=== PATIENT | female | born 1980 | race Caucasian/White ===

== ENCOUNTER 2017-03-11 15:38 | Emergency (ER) | payer OTHER ==
[~2017-03-11] VITALS: Ht 180.3 cm; Wt 154.9 kg
[2017-03-11] MEDS ORDERED: SODIUM CHLORIDE FLUSH 10ML SYR IVF ONE (16:00)
[2017-03-11] MEDS ORDERED: ONDANSETRON 2MG/ML, 2ML IVPush ONE (16:00)
[2017-03-11] MEDS ORDERED: SODIUM CHLORIDE 0.9% 1,000ML IVBOLUS ONE (16:00)
[2017-03-11 16:47] LABS: HEMOGLOBIN 14.4 g/dL (11.7-16.4); WHITE BLOOD COUNT 10.9 x10^3/uL (3.4-10)
[2017-03-11 17:00] LABS: BLOOD UREA NITROGEN 10 mg/dL (7-18)
[2017-03-11 17:05] LABS: IS PT STATUS REG ER OR PRE ER? YES
[2017-03-11 17:58] VITALS: BP 113/66
[2017-03-11] MEDS ORDERED: HYDROcodone/APAP 5/325 TABLET ONE (18:37)
[2017-03-11] MEDS ORDERED: ONDANSETRON ODT 4 MG ONE (18:38)
[2017-03-11] MEDS ORDERED: HYDROcodone/APAP 5/325 TABLET PO ONE (19:00)
[2017-03-11] MEDS ORDERED: ONDANSETRON ODT 4 MG PO ONE (19:00)
== END 2017-03-11 21:24 | disposition home or self-care (01) ==
LOC: ED 21:18
DX: M48.02 Spinal stenosis, cervical region (principal); R41.0 Disorientation, unspecified; M41.9 Scoliosis, unspecified; F25.9 Schizoaffective disorder, unspecified
CPT/HCPCS: 36415; 70450; 71010; 72125; 80048; 81003; 82040; 83880; 84484; 85025; 93005; 93970; 99285; Q0162

== ENCOUNTER 2019-08-18 12:32 | Emergency (ER) | payer MEDICAID ==
[~2019-08-18] VITALS: Ht 180.3 cm; Wt 137.6 kg
--- NOTE | 2019-08-18 14:37 | NUR ---
CALLED FOR PT. PT NOT IN LOBBY AT THIS TIME.
[2019-08-18 14:41] LABS: ALBUMIN 3.4 g/dL (3.4-5.0); ANION GAP 8 mmol/L (5-15); CALCIUM 8.8 mg/dL (8.5-10.1); CHLORIDE 103 mmol/L (98-107)
[2019-08-18 14:42] LABS: MEAN CORPUSCULAR HEMOGLOBIN 31.1 pg (27.0-34.8); MEAN CORPUSCULAR HGB CONC 33.8 g/dL (32.4-35.8); MEAN CORPUSCULAR VOLUME 91.8 fL (80-100); MEAN PLATELET VOLUME 8.3 fL (7.4-10.4); PLATELET COUNT 258 x10^3/uL (130-400); RED CELL DISTRIBUTION WIDTH 13.4 % (9.6-15.2)
[2019-08-18 14:45] LABS: ALANINE AMINOTRANSFERASE 15 U/L (12-78); ALKALINE PHOSPHATASE 75 U/L (45-117); BILIRUBIN,TOTAL 0.7 mg/dL (0.2-1.0); TOTAL PROTEIN 7.2 g/dL (6.4-8.2)
--- NOTE | 2019-08-18 14:51 | NUR ---
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
[2019-08-18 15:04] LABS: BASOPHILS # (AUTO) 0.04 x10^3/uL (0-0.1); BASOPHILS % (AUTO) 0 % (0-1); EOSINOPHILS # (AUTO) 0.01 x10^3/uL (0-0.4); EOSINOPHILS % (AUTO) 0 % (1-7); LYMPHOCYTES # (AUTO) 1.83 x10^3/uL (1-3.4); LYMPHOCYTES % (AUTO) 10 % (22-44); MD SCAN; MONOCYTES # (AUTO) 0.89 x10^3/uL (0.2-0.8); MONOCYTES % (AUTO) 5 % (2-9); NEUTROPHILS # (AUTO) 15.68 x10^3/uL (1.8-6.8); NEUTROPHILS % (AUTO) 85 % (42-75)
--- NOTE | 2019-08-18 15:13 | NUR ---
CALLED FOR PT. PT NOT IN LOBBY FOR THIRD ATTEMPT. RN LOOKED FOR PT IN LAB AND RESTROOMS.
== END 2019-08-18 15:29 | disposition left against medical advice (07) ==
LOC: ED 15:20
DX: M54.5 Low back pain (principal); R50.9 Fever, unspecified; R32 Unspecified urinary incontinence
CPT/HCPCS: 36415; 80053; 83605; 85025; 87040; 99283

== ENCOUNTER 2019-09-14 17:19 | Emergency (ER) | payer MEDICAID ==
[~2019-09-14] VITALS: Ht 182.9 cm; Wt 135.4 kg
--- NOTE | 2019-09-14 17:50 | NUR ---
CALLED FOR PT. PT NOT IN LOBBY.
--- NOTE | 2019-09-14 18:45 | NUR ---
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
--- NOTE | 2019-09-14 19:08 | NUR ---
Patient returning from xray.
--- NOTE | 2019-09-14 19:13 | NUR ---
First contact with patient. Patient presents to ER c/o low back pain post GLF. Patient slipped on water and fell backward. Patinet denies head trauma. Denies LOC. Patient states she has multiple back surgeries. Patient takes Roxicet at home for pain but has been out for 8 days. She states she has turned to street drugs, "any I can get my hands on," in the meantime. Patient wants to get off the street drugs. Patient is in NAD. Respirations even and unlabored.
[2019-09-14 19:26] VITALS: BP 124/63
[2019-09-14] MEDS ORDERED: KETOROLAC 30 MG/1 ML ONE (19:48)
[2019-09-14] MEDS ORDERED: OXYcodone IR 5MG TABLET ONE (19:49)
[2019-09-14] MEDS ORDERED: KETOROLAC 30 MG/1 ML IM ONE (20:00)
[2019-09-14] MEDS ORDERED: OXYcodone IR 5MG TABLET PO PRN (20:00)
--- NOTE | 2019-09-14 20:07 | NUR ---
Discharge instructions given. All questions and concerns addressed. Patient ambulatory with a steady gait. Patient states she wants to go to [facility] for detox. Explained the [facility] triage process with her; she understood. Gave bus pass. Belongings with patient.
== END 2019-09-14 20:10 | disposition home or self-care (01) ==
LOC: ED 20:00
DX: M47.816 Spondylosis without myelopathy or radiculopathy, lumbar region (principal); M43.16 Spondylolisthesis, lumbar region; G89.29 Other chronic pain; I51.7 Cardiomegaly; F10.10 Alcohol abuse, uncomplicated; F11.10 Opioid abuse, uncomplicated; F16.10 Hallucinogen abuse, uncomplicated; F15.10 Other stimulant abuse, uncomplicated; Z90.710 Acquired absence of both cervix and uterus; Y90.9 Presence of alcohol in blood, level not specified; W01.0XXA Fall on same level from slipping, tripping and stumbling without subsequent striking against object, initial encounter; Y93.89 Activity, other specified; Y92.89 Other specified places as the place of occurrence of the external cause; Y99.8 Other external cause status
CPT/HCPCS: 72110; 93005; 96372; 99284; J1885

== ENCOUNTER 2020-12-07 10:35 | Emergency (ER) | payer MEDICAID ==
[~2020-12-07] VITALS: Ht 180.3 cm; Wt 140.0 kg
--- NOTE | 2020-12-07 11:59 | NUR ---
DEMIX1
[2020-12-07 12:07] LABS: BASOPHILS % (AUTO) 1 % (0-1); EOSINOPHILS % (AUTO) 3 % (1-7); LYMPHOCYTES % (AUTO) 29 % (22-44); MEAN CORPUSCULAR HEMOGLOBIN 30.1 pg (27.0-34.8); MEAN CORPUSCULAR HGB CONC 33.9 g/dL (32.4-35.8); MEAN PLATELET VOLUME 7.9 fL (7.4-10.4); MONOCYTES % (AUTO) 5 % (2-9); NEUTROPHILS % (AUTO) 62 % (42-75); PLATELET COUNT 255 x10^3/uL (130-400); RED BLOOD COUNT 4.48 x10^6/uL (3.82-5.3); RED CELL DISTRIBUTION WIDTH 13.5 % (9.6-15.2)
[2020-12-07 12:14] LABS: ANION GAP 8 mmol/L (5-15); CALCIUM 8.6 mg/dL (8.5-10.1); CHLORIDE 110 mmol/L (98-107); SALICYLATE LEVEL 4.2 mg/dL (2.8-20.0)
[2020-12-07 12:20] LABS: ALANINE AMINOTRANSFERASE 18 U/L (12-78); ALKALINE PHOSPHATASE 66 U/L (45-117); BILIRUBIN,TOTAL 0.3 mg/dL (0.2-1.0); TOTAL PROTEIN 6.5 g/dL (6.4-8.2)
--- NOTE | 2020-12-07 12:35 | NUR ---
PT TO ROOM FROM LOBBY
--- NOTE | 2020-12-07 13:14 | NUR ---
per MD Calhoun, no urine drug screen needed.
--- NOTE | 2020-12-07 14:00 | NUR ---
LATE ENTRY D/T PATIENT CARE: MED LIST OBTAINED FROM PT FOR MD TO WRITE DC SCRIPT. PT A&O, RESPS EVEN AND UNLABORED, NO COMPLAINT. BP AND SPO2 MONITORS IN PLACE.
[2020-12-07] MEDS ORDERED: SPIR25TA5 PO (15:26)
[2020-12-07] MEDS ORDERED: GABA300C PO (15:26)
[2020-12-07] MEDS ORDERED: MIRT7.5T8 PO (15:26)
[2020-12-07] MEDS ORDERED: CYCL10TA2 PO (15:26)
[2020-12-07] MEDS ORDERED: TRAZ-175 PO (15:26)
[2020-12-07] MEDS ORDERED: PRAZ1CAP2 PO (15:26)
[2020-12-07] MEDS ORDERED: METF500T17 PO (15:26)
--- NOTE | 2020-12-07 15:30 | NUR ---
LATE ENTRY FOR 1529: PT GIVEN UPDATE WITH POC, PT STATES SHE IS SEEKING MEDICAL DETOX FROM [facility]. MD LAUREANO INFORMED. PER MD DETOX AT THIS FACILITY NOT OFFERED OR INDICATED. PT COUNSELED. VERBALIZES UNDERSTANDING. PT A&O, RESPS EVEN AND UNLABORED, NADN.
[2020-12-07 16:19] VITALS: BP 179/129
--- NOTE | 2020-12-07 16:33 | NUR ---
AT DC, PT PROVIDED WITH SCRIPT FOR REQUESTED HOME MED REFILL, GIVEN PCP REFERRAL FOR FOLLOW UP. PT VERBALIZES UNDERSTANDING OF DC INSTRUCTIONS.
--- NOTE | 2020-12-07 16:33 | NUR ---
AT TIME OF DISCHARGE, PT BECAME UPSET THAT SHE IS NOT ADMITTED FOR MEDICAL DETOX OF [facility]. PT IS A&O, RESPS EVEN AND UNLABORED, NO TREMORS, NO N/V, NO DIAPHORESIS NOTED DURING ED STAY. MD LAUREANO NOTIFIED. PT EDUCATED PT THAT MEDICAL DETOX IS NOT PROVIDED AT THIS FACILITY. PT VERBALIZES UNDERSTANDING. PT REQUESTS SNACK, SNACK AND WATER PROVIDED, PT TOLERATED WELL. PT STATES SHE WISHES TO DETOX AT OUTPATIENT FACILITY, [facility]. PT CALLED [facility] WHO STATES THEY WOULD ACCEPT HER AN OUTPATIENT. PT PROVIDED WITH CAB VOUCHER. PT AMBULATORY TO [place] [facility]K WITH ALL BELONGINGS, INCLUDING SUIT CASE. GAIT STEADY. CAB CALLED BY REGISTRATION STAFF.
== END 2020-12-07 16:33 | disposition home or self-care (01) ==
LOC: ED 13:25
DX: F15.129 Other stimulant abuse with intoxication, unspecified (principal); Z76.0 Encounter for issue of repeat prescription; Z72.9 Problem related to lifestyle, unspecified; R00.0 Tachycardia, unspecified; G89.29 Other chronic pain; Z90.710 Acquired absence of both cervix and uterus; F17.200 Nicotine dependence, unspecified, uncomplicated
CPT/HCPCS: 36415; 80053; 80299; 80320; 80329; 84703; 85025; 99283; G0480